=== PATIENT | female | born 1945 | race Caucasian/White ===

== ENCOUNTER 2020-10-25 17:03 | Emergency (ER) | payer MEDICARE ==
[~2020-10-25 17:03] MED LIST: BAYER CHEWABLE81 MG PO
[2020-10-25 20:43] LABS: HEMOGLOBIN 14.4 gm/dl (12.3-15.3); RED BLOOD COUNT 4.74 M/UL (4.00-5.10); WHITE BLOOD COUNT 7.2 K/UL (4.5-11.0)
[2020-10-25 21:08] LABS: BUN/CREATININE RATIO 23 (0-10)
[2020-10-25] MEDS ORDERED: PROAIR HFA8.5 GM INH (21:19)
== END 2020-10-25 23:32 | disposition home or self-care (01) ==
LOC: ER1 17:03
PROVIDERS: Physician Assistant
DX: Z23 Encounter for immunization (principal); U07.1 COVID-19; J20.8 Acute bronchitis due to other specified organisms; E78.5 Hyperlipidemia, unspecified; J45.909 Unspecified asthma, uncomplicated; Z90.49 Acquired absence of other specified parts of digestive tract; Z88.0 Allergy status to penicillin; Z88.2 Allergy status to sulfonamides; Z91.041 Radiographic dye allergy status
CPT/HCPCS: 71045; 80053; 81001; 82550; 82553; 83874; 84484; 85025; 93005; 99284; M0243

== ENCOUNTER → 2021-03-12 | Outpatient (CLI) | payer MEDICARE ==
[~2021-03-12] MED LIST changes: +PROAIR HFA8.5 GM INH
== END ==
LOC: EXRD 03-08 13:00
DX: M81.0 Age-related osteoporosis without current pathological fracture (principal); M85.88 Other specified disorders of bone density and structure, other site; M85.852 Other specified disorders of bone density and structure, left thigh
CPT/HCPCS: 77080

== ENCOUNTER → 2021-10-24 | Outpatient (CLI) | payer MEDICARE | LOC: EXRD 14:46 | DX: M25.562 Pain in left knee (principal) | CPT/HCPCS: 73562 ==